=== PATIENT | female | born 1945 | race Native Hawaiian/Other Pacific Islander ===

== ENCOUNTER 2017-01-22 01:11 | Inpatient (IN) | payer OTHER, MEDICARE ==
[~2017-01-22] VITALS: Ht 157.5 cm; Wt 65.0 kg
[2017-01-22] VITALS (22 sets, daily range): BP systolic 70–229; BP diastolic 38–122; PULSE 50–109; RESP 12–24; TEMP 97.9; O2SAT 95–100
[2017-01-22 02:13] LABS: APTT (PATIENT) 25.5 SEC (24.3-30.1); INTERNATIONAL NORMALIZED RATIO 0.9 RATIO; PROTHROMBIN TIME - PATIENT 9.8 SEC (9.8-11.6)
--- NOTE | 2017-01-22 02:19 | RADRPT ---
EXAM DATE/TIME: 01/22/2017 02:05 [facility] COMPARISON: No previous studies available for comparison. INDICATIONS : Elevated blood pressure, dizziness and syncopal episode RADIATION DOSE: 32.24 CTDIvol (mGy) MEDICAL HISTORY : Non-responsive. Ovarian cancer. SURGICAL HISTORY : None. ENCOUNTER: Initial ACUITY: 1 day PAIN SCALE: 2/10 LOCATION: Bilateral cranial TECHNIQUE: Multiple contiguous axial images were obtained of the head. Using automated exposure control and adj ustment of the mA and/or kV according to patient size, radiation dose was kept as low as reasonably a chievable to obtain optimal diagnostic quality images. FINDINGS: There is fairly extensive subarachnoid hemorrhage in the basilar cisterns and extending towards the s ylvian fissures and accurate in the sylvian fissure on the right side. Ventricles are mildly dilated. There is also some extension into the posterior fossa more so on the right side. There is no midline shift. No evidence for recent infarction. No acute bony abnormality. CONCLUSION: 1. Positive for fairly extensive subarachnoid hemorrhage in the basilar cisterns extending into the s ubarachnoid spaces bilaterally but worse on the right. Primary differential diagnosis is ruptured cer ebral aneurysm. Guido Perdue MD on January 22, 2017 at 2:14 Board Certified Radiologist. This report was verified electronically.
--- NOTE | 2017-01-22 02:23 | PD ---
HPI Chief Complaint: Hypertension Time Seen by Provider: 01:18 Travel History International Travel<30 days: No Contact w/Intl Traveler<30days: No Traveled to known affect area: No History of Present Illness HPI The patient is a 71 year old female who presents to the [facility] emergency department with a history of reportedly having elevated blood pressure prior to arrival. He began to check her blood pressure after she complained of headache and dizziness. She reportedly lost her balance and caught herself in the doorway and then went down onto her hands and knees. She had nausea and vomiting 3, and laid down on the floor. The dizzy sensation was described as feeling lightheaded. She denies any spinning. The patient's son reports that the highest blood pressure that he obtained at home was 229/ 139. The patient's son reports that she was upset prior to this and her being sick. He reports that with the headache she was complaining of neck pain and back pain. He reports that she does take metoprolol 50 mg twice daily for her high blood pressure. She was first diagnosed with high blood pressure in 2014 after she was diagnosed with ovarian cancer. Her blood pressure is usually very well controlled on this regimen. The patient's son called the patient's primary care physician, Dr. Alycia Lunsford. The patient's physician recommended that she be evaluated in the emergency department. The patient did not take anything for pain prior to arrival. On arrival to this facility the patient reports that her headache has nearly resolved. She denies any dizziness. The patient is resting comfortably and has to be awakened to answer questions. The patient denies any recent fevers, cough, congestion, neck pain, chest pain, shortness of breath, abdominal pain, diarrhea, urinary symptoms, one-sided weakness, slurred speech, facial droop, difficulty with word finding ability, or vision changes. PFS Past Medical History Narrative Medical The patient's past medical history is significant for ovarian cancer, hypertension, constipation. Chemotherapy: Yes (PATIENT TO START CHEMO TODAY 01/22/17 FOR OVARIAN CANCER) Past Surgical History Narrative Surgical The patient's past surgical history is significant for an exploratory laparotomy with total abdominal hysterectomy and BSO, right hemicolectomy related to ovarian cancer with metastasis, Fsbxby-[id number]-Mjav placement. Social History Alcohol Use: No Tobacco Use: No Substance Use: No Allergies-Medications (Allergen,Severity, Reaction): Coded Allergies: No Known Allergies (Unverified , 01/22/17) Reported Meds & Prescriptions Reported Meds & Active Scripts Active Reported Metoprolol Tartrate 50 Mg Tab 50 Mg PO BID Review of Systems Except as stated in HPI: all other systems reviewed are Neg General / Constitutional: No: Fever Eyes: No: Visual changes HENT: Positive: Lightheadedness, No: Rhinorrhea, Nosebleed, Neck Stiffness, Neck Pain Cardiovascular: No: Chest Pain or Discomfort Respiratory: No: Cough, Shortness of Breath Gastrointestinal: Positive: Nausea, Vomiting, No: Diarrhea, Abdominal Pain, Changes in Bowel Habits, Indigestion, Loss of Appetite Genitourinary: No: Dysuria Musculoskeletal: No: Pain Skin: No Rash Neurologic: Positive: Weakness (generalized weakness), Dizziness, Headache, No : Focal Abnormalities, Coordination Problem, Change in Mentation, Slurred Speech , Sensory Disturbance Psychiatric: No: Depression Endocrine: No: Polydipsia Hematologic/Lymphatic: No: Easy Bruising Physical Exam Narrative General: The patient is placed on a construction equipment mechanic helper with oximetry and blood pressure monitoring. Head and Neck exam: Head is normocephalic atraumatic. Eyes: EOMI, pupils are equal round and reactive to light. Nose: Midline septum with pink mucous membranes Mouth: Dentition unremarkable. Moist mucus membranes. Posterior oropharynx is not erythematous. No tonsillar hypertrophy. Uvula midline. Airway patent. Neck: No palpable lymphadenopathy. No nuchal rigidity. No thyromegaly. Cardiovascular: Regular rate and rhythm without murmurs, gallops, or rubs. No pulse deficit to the extremities and simultaneous auscultation and palpation of her radial artery. Lungs: Clear to auscultation bilaterally. No wheezes, rhonchi, or rales. Abdomen: Soft, without tenderness to palpation in all 4 quadrants of the abdomen. No guarding, rebound, or rigidity. Normal bowel sounds are audible. No tenderness on palpation of McBurney's point. Negative Ogden's sign. Extremities: No clubbing, cyanosis, or edema. 2+ pulses in all 4 extremities. No calf tenderness on palpation. The patient has a small bruise noted along the right shoulder, deltoid area. No crepitus or step-off. No tenderness on palpation. She has full range of motion of the right shoulder and arm. Back: No spinous process tenderness to palpation. No costovertebral angle tenderness to palpation. Neurologic Exam: Cranial nerves 2-12 were intact on exam. Strength is 5/5 in all 4 extremities. No sensory deficits noted. Skin Exam: No rash noted. Intact skin that is warm and dry. Data Data Last Documented VS Vital Signs Date Time Temp Pulse Resp B/P Pulse Ox O2 Delivery O2 Flow Rate FiO2 01/22/17 04:41 109 16 229/122 100 Ventilator 01/22/17 04:35 35 01/22/17 01:21 97.9 Orders Electrocardiogram (01/22/17 01:46) Complete Blood Count With Diff (01/22/17 01:46) Comprehensive Metabolic Panel (01/22/17 01:46) Creatine Kinase (Cpk) (01/22/17 01:46) Ckmb (Isoenzyme) Profile (01/22/17 01:46) Troponin I (01/22/17 01:46) B-Type Natriuretic Peptide (01/22/17 01:46) Prothrombin Time / Inr (Pt) (01/22/17 01:46) Act Partial Throm Time (Ptt) (01/22/17 01:46) Urinalysis - C+S If Indicated (01/22/17 01:46) Magnesium (Mg) (01/22/17 01:46) Thyroid Stimulating Hormone (01/22/17 01:46) Chest, Single Ap (01/22/17 01:46) Ct Brain W/O Iv Contrast(Rout) (01/22/17 01:46) Iv Access Insert/Monitor (01/22/17 01:46) Ecg Monitoring (01/22/17 01:46) Oximetry (01/22/17 01:46) Labetalol Inj (Trandate Inj) (01/22/17 02:30) Sodium Chlorid 0.9% 500 Ml Inj (Ns 500 M (01/22/17 02:30) Ondansetron Inj (Zofran Inj) (01/22/17 02:30) CKMB (01/22/17 01:45) CKMB% (01/22/17 01:45) Nicardipine Inj (Cardene Inj) (01/22/17 04:15) Nicardipine Inj (Cardene Inj) (01/22/17 04:17) Propofol 1000 Mg/100 Ml Inj (Diprivan 10 (01/22/17 04:21) Chest, Single Ap (01/22/17 04:20) Ng Gastric Tube Insert/Monitor (01/22/17 04:20) Urinary Catheter Insert/Apply (01/22/17 04:20) Etomidate Inj (Amidate Inj) (01/22/17 04:30) Succinylcholine Inj (Quelicin Inj) (01/22/17 04:30) Sodium Chloride 0.9% Flush (Ns Flush) (01/22/17 04:30) Lidocaine 2% Inj (Xylocaine 2% Inj) (01/22/17 04:30) Cta Brain W Iv Contrast W 3d (01/22/17 ) Propofol 1000 Mg/100 Ml Inj (Diprivan 10 (01/22/17 04:45) ^ Infusion (01/22/17 04:40) RASS (01/22/17 04:40) Neurological Rass Scale PALLAVI.Q2H (01/22/17 04:40) Cta Neck W Iv Contrast W 3d (01/22/17 ) Admit Order (Ed Use Only) (01/22/17 05:00) Labs Laboratory Tests Test 01/22/17 01/22/17 01:45 04:04 Prothrombin Time 9.8 SEC Prothromb Time International 0.9 RATIO Ratio Activated Partial 25.5 SEC Thromboplast Time Sodium Level 135 MEQ/L Potassium Level 4.2 MEQ/L Chloride Level 99 MEQ/L Carbon Dioxide Level 28.6 MEQ/L Anion Gap 7 MEQ/L Blood Urea Nitrogen 9 MG/DL Creatinine 0.52 MG/DL Estimat Glomerular Filtration 116 ML/MIN Rate Random Glucose 132 MG/DL Calcium Level 8.8 MG/DL Magnesium Level 1.9 MG/DL Total Bilirubin 0.3 MG/DL Aspartate Amino Transf 38 U/L (AST/SGOT) Alanine Aminotransferase 22 U/L (ALT/SGPT) Alkaline Phosphatase 81 U/L Total Creatine Kinase 199 U/L Creatine Kinase MB 2.3 NG/ML Creatine Kinase MB % 1.2 % Troponin I LESS THAN 0.02 NG/ML B-Type Natriuretic Peptide 38 PG/ML Total Protein 7.2 GM/DL Albumin 3.6 GM/DL Thyroid Stimulating Hormone 1.510 uIU/ML 3rd Gen White Blood Count 6.0 TH/MM3 Red Blood Count 4.38 MIL/MM3 Hemoglobin 11.2 GM/DL Hematocrit 33.6 % Mean Corpuscular Volume 76.7 FL Mean Corpuscular Hemoglobin 25.6 PG Mean Corpuscular Hemoglobin 33.4 % Concent Red Cell Distribution Width 18.2 % Platelet Count 248 TH/MM3 Mean Platelet Volume 6.6 FL Neutrophils (%) (Auto) 61.9 % Lymphocytes (%) (Auto) 27.0 % Monocytes (%) (Auto) 10.6 % Eosinophils (%) (Auto) 0.0 % Basophils (%) (Auto) 0.5 % Neutrophils # (Auto) 3.7 TH/MM3 Lymphocytes # (Auto) 1.6 TH/MM3 Monocytes # (Auto) 0.6 TH/MM3 Eosinophils # (Auto) 0.0 TH/MM3 Basophils # (Auto) 0.0 TH/MM3 CBC Comment AUTO DIFF Differential Comment AUTO DIFF CONFIRMED Ovalocytes 1+ MDM Medical Decision Making Medical Screen Exam Complete: Yes Emergency Medical Condition: Yes Medical Record Reviewed: Yes Interpretation(s) Last Impressions Head CT 01/22/17145 Signed Impressions: Service Date/Time: Sunday, January 22, 2017 02:05 - CONCLUSION: 1. Positive for fairly extensive subarachnoid hemorrhage in the basilar cisterns extending into the subarachnoid spaces bilaterally but worse on the right. Primary differential diagnosis is ruptured cerebral aneurysm. Guido Perdue MD Chest X-Ray 01/22/17145 Signed Impressions: Service Date/Time: Sunday, January 22, 2017 02:14 - CONCLUSION: 1. Scattered subsegmental air space disease in the lungs at the bases most characteristic of atelectasis. Ojhuku-u-Zeuv in superior vena cava. Guido Perdue MD Differential Diagnosis Intracranial hemorrhage, versus tension headache, versus migraine headache, versus hypertension associated headache, versus viral syndrome Narrative Course During the course of the patients emergency department visit, the patients history, examination, and differential diagnosis were reviewed with the patient. The patient had IV access obtained and blood work sent for analysis. The patient was placed on a construction equipment mechanic helper with oximetry and blood pressure monitoring. An EKG was done on arrival. The patient's EKG reveals a sinus rhythm of 72, no acute ST segment elevation is noted. T waves are inverted in V1, lead 3. On my arrival to the room the patient's blood pressure had improved down to a systolic of 180. The patient appeared to be in no other acute distress. The patient was provided normal saline a 500 mL bolus 1, Zofran [address] scan of the brain revealed a subarachnoid hemorrhage suspicious for aneurysm rupture. A call was placed out immediately to the neurosurgeon on-call. The patient was started on Cardene by drip with systolic blood pressure titrated to less than or equal to 140. The patient on reevaluation had a decreased level of consciousness and was not able to be aroused. She was responding to painful stimulation, however for protection of her airway she was intubated. An OG tube was placed, Bae catheter was placed to gravity. The patient was given Nimotop 60 mg by OG. The patient's case was discussed with Dr. Stein. He requested that a CTA of the head be done. The patients laboratory studies were reviewed and remarkable for a white count of 6.0, hemoglobin 11.2, platelets 248 with neutrophils 61.9, lymphocytes 27, monocytes 10.6. CMP is remarkable for sodium of 135, glucose 132, AST 38, CPK 199 with an MB percent 1.2, troponin I less than 0.02, BNP 38, TSH 1.51, PT PTT within normal limits, urinalysis shows 70 glucose, trace ketones, otherwise unremarkable. The patient's initial chest x-ray old scattered subsegmental airspace disease and lung to the bases most characteristic of atelectasis, an Ysgsor-r-Tsgo in the superior vena cava was noted. Chest x-ray postintubation revealed that the endotracheal tube tip was in the proximal right main stem bronchus. This was withdrawn 2 cm. CTA of the neck was read as unremarkable by the reading radiologist. Endotracheal tube was noted to be in the proximal right main stem bronchus. The patient CTA of the head was taking a prolonged period of time for a report to be done by the radiologist, therefore I did call Dr. Perdue to discuss this further. He reports that he is greatly concerned that there is an aneurysm, however he was not able to find one. He reports that he will have another radiologist take a look at the CTA. I did call Dr. Stein, the neurosurgeon on- call to discuss this with him and passed this information on to him. He recommended that the patient be admitted to the [facility]. The patient's case was discussed with the legal aide who did agree to admit the patient. The patients results were discussed with the patient, including the plan of care. I explained that further testing and/ or monitoring is indicated based on the patients history, examination, and/ or laboratory findings. Therefore, I recommended admission for additional evaluation. The patient expressed understanding and was agreeable with this plan. The patient was admitted to the hospital in critical condition and sent to a bed under the care of the legal aide. A consultation has been placed to Dr. Stein. Critical Care Narrative Aggregate critical care time was47 minutes. Time to perform other separately billable procedures was not included in the critical care time. My time did not include minutes spent treating any other patients simultaneously or on activities that did not directly contribute to the patient's treatment. The services I provided to this patient were to treat and/or prevent clinically significant deterioration that could result in: Respiratory failure, versus aspiration, versus cardiovascular collapse I provided critical care services requiring my management, as noted below: Chart data review, documentation time, medication orders and management, vital sign assessments/reviewing monitor data, ordering and reviewing lab tests, ordering and interpreting/reviewing x-rays and diagnostic studies, care of the patient and discussion of the patient with the admitting physicians. Procedures Procedure Narrative After the risks and benefits were discussed the following procedure was performed: INTUBATION: The patient was put in optimal position for the procedure. Rapid sequence intubation was initiated by me using 20 milligrams of etomidate IV and 100 milligrams of succinylcholine IV. Prior to intubation lidocaine 100 mg was administered 1. The patient was intubated with a 7-1/2 cuffed endotracheal tube with the glidescope. Tube placement was confirmed by visualization of the tube and balloon passing through the cords, capnometry and subsequent chest x-ray. Breath sounds were equal and well aerated bilaterally postintubation. No breath sounds over stomach. Patient tolerated procedure well. Physician Communication Physician Communication The patient's case was discussed on [address] Stein. The patient's case was discussed with Dr. Greene. The patient's case is discussed with Dr. Perdue , the reading radiologist. Diagnosis Primary Impression: Subarachnoid hemorrhage Admitting Information Admitting Physician Requests: Laine Zacarias MD Jan 22, 2017 02:23
[2017-01-22] MEDS ORDERED: SODIUM CHLORID 0.9% 500 ML INJ 500 ML IV ONE (02:30)
[2017-01-22] MEDS ORDERED: LABETALOL HCL 100 MG/20 ML VIAL IV PUSH ONE (02:30)
[2017-01-22] MEDS ORDERED: ONDANSETRON HCL 4 MG/2 ML VIAL IV PUSH ONE (02:30)
[2017-01-22 02:31] LABS: ALKALINE PHOSPHATASE 81 U/L (45-117); ALT (GPT) 22 U/L (10-53); ANION GAP 7 MEQ/L (5-15); AST (GOT) 38 U/L (15-37); BICARBONATE 28.6 MEQ/L (21.0-32.0); BLOOD UREA NITROGEN 9 MG/DL (7-18); CHLORIDE 99 MEQ/L (98-107); CREATINE KINASE 199 U/L (26-192); GLOMERULAR FILTRATION RATE 116 ML/MIN (>89); MAGNESIUM 1.9 MG/DL (1.5-2.5); POTASSIUM 4.2 MEQ/L (3.5-5.1); SODIUM (NA) 135 MEQ/L (136-145); TOTAL BILIRUBIN ADULT 0.3 MG/DL (0.2-1.0)
[2017-01-22 02:44] LABS: CKMB 2.3 NG/ML (0.5-3.6)
--- NOTE | 2017-01-22 02:54 | RADRPT ---
EXAM DATE/TIME: 01/22/2017 02:14 [facility] COMPARISON: No previous studies available for comparison. INDICATIONS : Cough. MEDICAL HISTORY : None. SURGICAL HISTORY : None. ENCOUNTER: Initial ACUITY: 1 day PAIN SCORE: 0/10 LOCATION: Bilateral chest FINDINGS: A single view of the chest demonstrates Ndekka-y-Lpur tip in superior vena cava. Subsegmental airspac e disease in the lungs. No effusion. No pneumothorax. CONCLUSION: 1. Scattered subsegmental air space disease in the lungs at the bases most characteristic of atelecta sis. Zrwiqy-c-Ejyw in superior vena cava. Guido Perdue MD on January 22, 2017 at 2:49 Board Certified Radiologist. This report was verified electronically.
[2017-01-22 04:09] LABS: AUTOMATED NEUTROPHIL # 3.7 TH/MM3 (1.8-7.7); BASOPHIL % 0.5 % (0.0-2.0); HEMATOCRIT 33.6 % (35.0-46.0); LYMPHOCYTE # 1.6 TH/MM3 (1.0-4.8); MEAN CELL VOLUME 76.7 FL (80.0-100.0); MEAN CORPUSCULAR HEMOGLOBIN 25.6 PG (27.0-34.0); MEAN CORPUSCULAR HGB CONC 33.4 % (32.0-36.0); MONO % 10.6 % (0.0-8.0); NEUT % 61.9 % (16.0-70.0); PLATELET COUNT 248 TH/MM3 (150-450); RED BLOOD COUNT 4.38 MIL/MM3 (4.00-5.30); RED CELL DISTRIBUTION WIDTH 18.2 % (11.6-17.2)
[2017-01-22] MEDS ORDERED: niCARdipine INJ 25 MG in SODIUM CHLOR 0.9% 250 ML INJ 250 ML IV ONE (04:15)
[2017-01-22 04:21] LABS: HEMO FLAGS AUTO DIFF
[2017-01-22] MEDS ORDERED: PROPOFOL 1000 MG/100 ML INJ 100 ML ONE (04:21)
[2017-01-22] MEDS ORDERED: SUCCINYLCHOLINE CHLORIDE 200 MG/10 ML VIAL IVP ONE (04:30)
[2017-01-22] MEDS ORDERED: ETOMIDATE 20 MG/10 ML VIAL IVP ONE (04:30)
[2017-01-22] MEDS ORDERED: SODIUM CHLORIDE 0.9% FLUSH 10 ML FLUSH IVF PRN (04:30)
[2017-01-22] MEDS ORDERED: LIDOCAINE HCL 2% 100 MG/5 ML SYRINGE IVP ONE (04:30)
[2017-01-22] MEDS ORDERED: PROPOFOL 1000 MG/100 ML INJ 100 ML IV SCH ×2 (04:45→05:30)
[2017-01-22] MEDS ORDERED: METO50TA PO (04:46)
[2017-01-22 04:50] LABS: OVALOCYTES 1+ (NORMAL); SCAN/DIFF AUTO DIFF CONFIRMED
[2017-01-22] MEDS ORDERED: SODIUM CHLOR 0.9% 1000 ML INJ 1,000 ML IV SCH (05:23)
[2017-01-22] MEDS ORDERED: SODIUM CHLORIDE 0.9% FLUSH 10 ML FLUSH PRN (05:30)
[2017-01-22] MEDS ORDERED: niMODipine 30 MG CAP OG-TUBE ONE (05:30)
[2017-01-22] MEDS ORDERED: ACETAMINOPHEN 325 MG TAB PO PRN (05:30)
[2017-01-22] MEDS ORDERED: METOCLOPRAMIDE HCL 10 MG/2 ML VIAL IV PRN (05:30)
[2017-01-22] MEDS ORDERED: RESP: ALBUTEROL 2.5 MG/IPRATROPIUM 0.5 MG NEB (PRN) INH (05:30)
[2017-01-22] MEDS ORDERED: MISCELLANEOUS NURSING INFORMATION XX SCH (05:30)
[2017-01-22] MEDS ORDERED: ONDANSETRON HCL 4 MG/2 ML VIAL IV PRN (05:30)
[2017-01-22] MEDS ORDERED: fentaNYL DRIP 250 ML IV SCH (05:30)
[2017-01-22] MEDS ORDERED: MORPHINE SULFATE 4 MG/ML INJ IV PRN (05:30)
[2017-01-22] MEDS ORDERED: CHLORHEXIDINE GLUCONATE 2 % 1 PACK (2 CLOTHS) TOP PRN (05:30)
[2017-01-22] MEDS ORDERED: fentaNYL DRIP 250 ML ONE (05:43)
--- NOTE | 2017-01-22 05:44 | HHI.HP ---
HPI Service Critical Care Medicine Primary Care Physician Scooter Lunsford M.D. Admission Diagnosis SAH, hypertension Diagnosis: Travel History International Travel<30 Days: No Contact w/Intl Traveler <30 Da: No Traveled to Known Affected Are: No History of Present Illness 71 year old female presents with a history of elevated blood pressure prior to arrival. The patient's son reports that he checked her blood pressure when after getting upset that her was sick, she complained of headache, dizziness, nausea or vomiting, and laid down on the floor. She denies any spinning. He reports that the highest blood pressure that he obtained was 229/ 139. She vomited at home 3 times. She became unresponsive with a Henriquez Jarvis score 5 and was intubated by ER attending for airway protection. CT scan of the head shows subarachnoid bleed Pedro grade 3. The patient is admitted to critical care with a neurosurgical consultation. Review of Systems ROS Unable to obtain patient is sedated and intubated Past Family Social History Allergies: Coded Allergies: No Known Allergies (Unverified , 01/22/17) Past Medical History Hypertension Ovarian Ca Stage IV - succesfuly treated since 01/2015 with improvement of PET Past Surgical History Bilateral salpingo-oophorectomy Hysterectomy Iqokuq-k-Ofyg placement Reported Medications Reported Meds & Active Scripts Active Reported Metoprolol Tartrate 50 Mg Tab 50 Mg PO BID Active Ordered Medications Current Medications Medications (Trade) Dose Ordered Sig/Rosana Route PRN Reason Start Time Stop Time Status Last Admin Dose Admin Sodium Chloride 2 ml 2 ml UNSCH PRN IVF FLUSH AFTER USING IV ACCESS 01/22/17 04:30 Propofol 100 ml @ 0 mls/hr TITRATE IV 01/22/17 04:45 Sodium Chloride (NS 1000 ml Inj) 1,000 ml @ 84 mls/hr [id number] IV 01/22/17 05:23 Sodium Chloride (NS Flush) 2 ml UNSCH PRN .XX FLUSH AFTER USING IV ACCESS 01/22/17 05:30 Sodium Chloride (NS Flush) 2 ml BID .XX 01/22/17 09:00 Acetaminophen (Tylenol) 650 mg Q6H PRN PO PAIN 1-5 AND/OR FEVER >101F 01/22/17 05:30 Morphine Sulfate (Morphine Inj) 2 mg Q2H PRN IV PAIN SCALE 6 TO 10 01/22/17 05:30 Famotidine (Pepcid Inj) 20 mg Q12HR IV PUSH 01/22/17 09:00 Artificial Tears (Tears Naturale Opth Soln) 1 drop TID EACH EYE 01/22/17 09:00 Ondansetron HCl (Zofran Inj) 4 mg Q6H PRN IV NAUSEA OR VOMITING 01/22/17 05:30 Metoclopramide HCl (Reglan Inj) 10 mg Q6H PRN IV NAUSEA OR VOMITING 01/22/17 05:30 Docusate Sodium (Colace Liq) 100 mg Q12H G-TUBE 01/22/17 09:00 Miscellaneous Information 1 [id number] XX 01/22/17 05:30 Chlorhexidine Gluconate (Chlorhexidine 2% Cloth) 3 pack Taper DAILY@04 TOP 01/23/17 04:00 01/19/18 03:59 Chlorhexidine Gluconate 3 pack 3 pack UNSCH PRN TOP HYGIENIC CARE 01/22/17 05:30 Propofol 100 ml @ 0 mls/hr TITRATE IV 01/22/17 05:30 Fentanyl Citrate (fentaNYL DRIP) 250 ml @ 0 mls/hr TITRATE IV 01/22/17 05:30 01/22/17 06:09 Nimodipine (Nimotop) 60 mg Q4HR PO 01/22/17 08:00 Pravastatin Sodium (Pravachol) 40 mg HS PO 01/22/17 21:00 Family History Noncontributory Social History Never smoked no alcohol or illicit drug abuse Physical Exam Vital Signs Vital Signs Date Time Temp Pulse Resp B/P Pulse Ox O2 Delivery O2 Flow Rate FiO2 01/22/17 05:32 100 100 01/22/17 04:41 109 16 229/122 100 Ventilator 01/22/17 04:35 35 01/22/17 04:35 100 35 01/22/17 04:00 88 215/101 99 01/22/17 03:00 74 24 192/87 97 01/22/17 02:00 70 20 202/82 95 Room Air 01/22/17 01:45 76 22 / 96 01/22/17 01:21 97.9 74 24 209/ Physical Exam GENERAL: Well-nourished, well-developed , comatose patient. SKIN: Warm and dry. HEAD: Normocephalic. EYES: No scleral icterus. No injection or drainage. Pupils are 2 mm and brisk bilaterally NECK: Supple, trachea midline. No JVD or lymphadenopathy. CARDIOVASCULAR: Regular rate and rhythm without murmurs, gallops, or rubs. RESPIRATORY: Breath sounds equal bilaterally. No accessory muscle use. GASTROINTESTINAL: Abdomen soft, non-tender, nondistended. MUSCULOSKELETAL: No cyanosis, or edema. BACK: Nontender without obvious deformity. No CVA tenderness. EXTREMITIES: No clubbing cyanosis or edema Laboratory Laboratory Tests Test 01/22/17 01/22/17 01:45 04:04 Prothrombin Time 9.8 Prothromb Time International 0.9 Ratio Activated Partial 25.5 Thromboplast Time Sodium Level 135 Potassium Level 4.2 Chloride Level 99 Carbon Dioxide Level 28.6 Anion Gap 7 Blood Urea Nitrogen 9 Creatinine 0.52 Estimat Glomerular Filtration 116 Rate Random Glucose 132 Calcium Level 8.8 Magnesium Level 1.9 Total Bilirubin 0.3 Aspartate Amino Transf 38 (AST/SGOT) Alanine Aminotransferase 22 (ALT/SGPT) Alkaline Phosphatase 81 Total Creatine Kinase 199 Creatine Kinase MB 2.3 Creatine Kinase MB % 1.2 Troponin I LESS THAN 0.02 B-Type Natriuretic Peptide 38 Total Protein 7.2 Albumin 3.6 Thyroid Stimulating Hormone 1.510 3rd Gen White Blood Count 6.0 Red Blood Count 4.38 Hemoglobin 11.2 Hematocrit 33.6 Mean Corpuscular Volume 76.7 Mean Corpuscular Hemoglobin 25.6 Mean Corpuscular Hemoglobin 33.4 Concent Red Cell Distribution Width 18.2 Platelet Count 248 Mean Platelet Volume 6.6 Neutrophils (%) (Auto) 61.9 Lymphocytes (%) (Auto) 27.0 Monocytes (%) (Auto) 10.6 Eosinophils (%) (Auto) 0.0 Basophils (%) (Auto) 0.5 Neutrophils # (Auto) 3.7 Lymphocytes # (Auto) 1.6 Monocytes # (Auto) 0.6 Eosinophils # (Auto) 0.0 Basophils # (Auto) 0.0 CBC Comment AUTO DIFF Differential Comment AUTO DIFF CONFIRMED Ovalocytes 1+ Result Diagram: 01/22/17 0404 01/22/17 0145 Imaging Last 24 hours Impressions Chest X-Ray 01/22/17 6330 Signed Impressions: Service Date/Time: Sunday, January 22, 2017 05:43 - CONCLUSION: 1. Endotracheal tube tip in proximal right mainstem bronchus. This should be withdrawn about 3 cm. Minimal subsegmental airspace disease at the lung bases. Guido Perdue MD Head CT 01/22/176 Signed Impressions: Service Date/Time: Sunday, January 22, 2017 02:05 - CONCLUSION: 1. Positive for fairly extensive subarachnoid hemorrhage in the basilar cisterns extending into the subarachnoid spaces bilaterally but worse on the right. Primary differential diagnosis is ruptured cerebral aneurysm. Guido Perdue MD Chest X-Ray 01/22/17145 Signed Impressions: Service Date/Time: Sunday, January 22, 2017 02:14 - CONCLUSION: 1. Scattered subsegmental air space disease in the lungs at the bases most characteristic of atelectasis. Jgzsam-p-Mnki in superior vena cava. Guido Perdue MD Neck CTA 01/22/17 0000 Signed Impressions: Service Date/Time: Sunday, January 22, 2017 05:17 - CONCLUSION: 1. Unremarkable CTA carotids. ET tube tip in proximal right mainstem bronchus. Ehouir-k-Gtzd in superior vena cava. Guido Perdue MD Assessment and Plan Assessment and Plan SAH - HH 5 - Pedro 3 - Cerebral angiogram - BP control - SBP goal < 140 - Nimodipime, Pravachol HTN - Nicardipime gtt - SBP goal < 140 Ovarian cancer - Successfully treated - Supportive care DVT GI prophylaxis - Teds SCDs - No pharmacological prophylaxis due to ICH - Pepcid Critical Care: The total critical care time was 35 minutes. Time to perform other separately billable procedures was not included in the critical care time. Juan Miguel Greene MD Jan 22, 2017 05:43
[2017-01-22] MEDS ORDERED: IOHEXOL 350 MG/ML 10 ML VIAL (for RAD DIAG) IV ONE (05:47)
[2017-01-22 05:56] LABS: BLOOD GAS BASE EXCESS 2.7 mmol/L (-2-2); BLOOD GAS CARBOXYHEMOGLOBIN 1.1 % (0-4); BLOOD GAS HCO3 25 mmol/L (22-26); BLOOD GAS METHEMOGLOBIN 0.5 % (0-2); BLOOD GAS O2 HGB SATURATION 98 % (90-100); BLOOD GAS OXYGEN CONTENT 15.7 Vol % (12.0-20.0); BLOOD GAS PCO2 29 mmHg (38-42); BLOOD GAS PO2 126 mmHG (61-120); BLOOD GAS TOTAL HGB 11.3 G/DL (12.0-16.0); TEMP CORR TO 98.6
[2017-01-22 05:57] LABS: CRITICAL VALUE YES; DRAW SITE RT RADIAL; FIO2 35 %; NUMBER OF ARTERIAL PUNCTURES 1; OXYGEN DEVICE VENTILATOR; STAT NO; ULNAR PULSE PRESENT; VENT SETTINGS VAC16/500/PEEP5
--- NOTE | 2017-01-22 06:11 | RADRPT ---
EXAM DATE/TIME: 01/22/2017 05:17 [facility] COMPARISON: No previous studies available for comparison. INDICATIONS : Evaluate for anuersym. IV CONTRAST: 70 cc Omnipaque 350 (iohexol) IV ; Cumulative dose for multiple exams. RADIATION DOSE: 26.84 CTDIvol (mGy) ; Combined studies MEDICAL HISTORY : Hypertension. Ovarian cancer SURGICAL HISTORY : None. ENCOUNTER: Initial ACUITY: 1 day PAIN SCALE: Non-responsive LOCATION: neck Elevated flow velocities and ICA/CCA ratios have been found to correlate with increased degrees of vessel stenosis, calculated as percentage of diameter relative to a normal segment of distal ICA/CCA. TECHNIQUE: Volumetric scanning was performed using a multirow detector CT scanner. The data was post processed with a variety of visualization algorithms including full-volume maximum intensity projection, multip lanar sliding thin-slab reformation, curved-planar reformation, and surface-rendering techniques. Us ing automated exposure control and adjustment of the mA and/or kV according to patient size, radiatio n dose was kept as low as reasonably achievable to obtain optimal diagnostic quality images. FINDINGS: AORTIC ARCH: There is a three-vessel origin of the great vessels from the aorta. No evidence of ostial narrowing. RIGHT CAROTID: The common carotid artery is intact. The carotid bulb has a normal configuration without ulceration o r narrowing. The internal carotid artery lumen is smooth without stenosis. The external carotid tomas ry is intact. LEFT CAROTID: The common carotid artery is intact. The carotid bulb has a normal configuration without ulceration or narrowing. The internal carotid artery lumen is smooth without stenosis. The external carotid ar garo is intact. VERTEBRALS: The vertebral arteries have a symmetric diameter. No stenotic lesions are seen. CONCLUSION: 1. Unremarkable CTA carotids. ET tube tip in proximal right mainstem bronchus. Puwsmv-b-Xacx in super ior vena cava. Guido Perdue MD on January 22, 2017 at 6:03 Board Certified Radiologist. This report was verified electronically.
--- NOTE | 2017-01-22 06:19 | RADRPT ---
EXAM DATE/TIME: 01/22/2017 05:43 [facility] COMPARISON: CHEST SINGLE AP, January 22, 2017, 2:14. INDICATIONS : Post intubation. MEDICAL HISTORY : None. SURGICAL HISTORY : None. ENCOUNTER: Initial ACUITY: 1 day PAIN SCORE: Non-responsive. LOCATION: Bilateral chest FINDINGS: Endotracheal tube tip is in proximal right mainstem bronchus. NG tube in stomach. Right central Infus e-a-Port in superior vena cava. Mild basilar airspace disease. No pneumothorax. CONCLUSION: 1. Endotracheal tube tip in proximal right mainstem bronchus. This should be withdrawn about 3 cm. Mi nimal subsegmental airspace disease at the lung bases. Guido Perdue MD on January 22, 2017 at 6:17 Board Certified Radiologist. This report was verified electronically.
[2017-01-22 06:56] LABS: BLOOD, URINE NEG (NEG); COMMENT (UR) CATH-CULT NOT IND; CULTURE IF INDICATED CATH CULTURE NOT IND; GLUCOSE,URINE 70 mg/dL (NEG); KETONE, URINE TRACE mg/dL (NEG); MUCUS URINE FEW /lpf (OCC); NITRITE,URINE NEG (NEG)
[2017-01-22 06:58] LABS: URINE COLOR STRAW (YELLW/STRAW)
[2017-01-22] MEDS ORDERED: niMODipine 30 MG CAP PO SCH (08:00)
--- NOTE | 2017-01-22 08:01 | RADRPT ---
EXAM DATE/TIME: 01/22/2017 05:17 [facility] COMPARISON: CT BRAIN W/O CONTRAST, January 22, 2017, 2:05. INDICATIONS : Evaluate for anuersym. IV CONTRAST: 70 cc Omnipaque 350 (iohexol) IV ; Cumulative dose for multiple exams. RADIATION DOSE: 26.84 CTDIvol (mGy) ; Combined studies MEDICAL HISTORY : Hypertension. Ovarian cancer SURGICAL HISTORY : None. ENCOUNTER: Initial ACUITY: 1 day PAIN SCALE: Non-responsive LOCATION: cranial TECHNIQUE: Volumetric scanning was performed using a multi-row detector CT scanner. The data was post processed with a variety of visualization algorithms including full volume maximum intensity projection, multi -planar sliding thin slab reformation, curved planar reformation, and surface rendering techniques. Using automated exposure control and adjustment of the mA and/or kV according to patient size, radiat ion dose was kept as low as reasonably achievable to obtain optimal diagnostic quality images. FINDINGS: There is excellent visualization of the major intracranial arteries out to the second-order branch ve ssels. The patient has variant anatomy. There is persistent circulation seen on the left. Ther e is a dominant right posterior communicating artery on the right. A suspected tiny saccular aneurysm is seen arising from the right superior cerebellar branch. This measures 2 x 2 mm. Is with mild lobu lation. No other aneurysms are identified. The basilar artery is fairly small in diameter due to the patient's variant anatomy. The basil artery measures 1.5 mm in diameter. Both vertebral arteries are fairly small in caliber near their junction with the basilar artery. Each measures 1-1.5 mm in size. Minimal vasospasm involving the right M1 segment. CONCLUSION: 1. 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 This patient church s variant anatomy with a very small caliber basilar artery as well as the superior portions of both v ertebral arteries. This would make endovascular evaluation and intervention difficult. 2. Mild vasospasm involving the right M1 segment. Ash Valdes Jr., MD on January 22, 2017 at 7:46 Board Certified Radiologist. This report was verified electronically.
[2017-01-22] MEDS ORDERED: DOCUSATE SODIUM 100 MG/10 ML UDC G-TUBE SCH (09:00)
[2017-01-22] MEDS ORDERED: FAMOTIDINE 20 MG/2 ML VIAL IV PUSH SCH (09:00)
[2017-01-22] MEDS ORDERED: ARTIFICIAL TEARS OPTH SOLN 15 ML BTL EACH EYE SCH (09:00)
[2017-01-22] MEDS ORDERED: SODIUM CHLORIDE 0.9% FLUSH 10 ML FLUSH SCH (09:00)
--- NOTE | 2017-01-22 11:36 | HHI.PR ---
Addendum to Inpatient Note Addendum Reason: Additional Documentation Additional Information Discussed with Dr. Nahid Stein - neurosurgery. 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 Stein for further intervention. I went to the ER and spoke with the ER physician, patient's family and contacted [facility] transfer center. Dr. Kwaku Mishra , neurosurgeon at [facility] accepted patient for admission to neurosurgery ICU. I explained the above to patient's family at bedside and they voiced understanding and were agreeable. I tried arranging transport by air however due to weather conditions patient may possibly require transfer by [facility] which is being arranged. Discussed with ER physician. Todd Noyola MD Jan 22, 2017 11:13
--- NOTE | 2017-01-22 20:21 | EKG ---
Date Performed: 01/22/2017 Time Performed: 01:27:52 PTAGE: 71 years EKG: Sinus rhythm POSSIBLE RIGHT VENTRICULAR CONDUCTION DELAY BORDERLINE ECG NO PREVIOUS TRACING DOCTOR: Kyle Bower Interpretating Date/Time 01/22/2017 20:19:50
[2017-01-22] MEDS ORDERED: PRAVASTATIN SOD 40 MG TAB PO SCH (21:00)
[2017-01-23] MEDS ORDERED: CHLORHEXIDINE GLUCONATE 2 % 1 PACK (2 CLOTHS) TOP SCH (04:00)
== END 2017-01-22 12:11 | disposition short-term general hospital (02) | DRG 65 ==
LOC: NEPE 01:11 → NEDA 05:02
PROVIDERS: ADMIT Internal Medicine Critical Care Medicine; ATTEND Internal Medicine Critical Care Medicine
PROC: 0BH17EZ Insertion of Endotracheal Airway into Trachea, Via Natural or Artificial Opening (ICD-10-PCS; principal; 2017-01-22)
PROC: 5A1935Z Respiratory Ventilation, Less than 24 Consecutive Hours (ICD-10-PCS; 2017-01-22)
DX: I60.4 Nontraumatic subarachnoid hemorrhage from basilar artery (principal); C56.9 Malignant neoplasm of unspecified ovary; I10 Essential (primary) hypertension
CPT/HCPCS: 31500; 36591; 36600; 51702; 70450; 70496; 70498; 71010; 80053; 81001; 82550; 82552; 82805; 83735; 83880; 84443; 84484; 85025; 85610; 85730; 86304; 93005; 96361; 96365; 96368; 96375; J0330; J1642; J2405; J3010; J7040; J7050; Q9967